=== PATIENT | male | born 1985 | race Caucasian/White ===

== ENCOUNTER 2021-02-03 17:37 | Emergency (ER) | payer OTHER ==
[2021-02-03] MEDS ORDERED: PERMETHRIN CREA60 GM TOP (23:04)
[2021-02-03] MEDS ORDERED: BACTRIM DS TAB1 EACH PO (23:04)
== END 2021-02-03 23:26 | disposition home or self-care (01) ==
LOC: FER 17:37
DX: S80.262A Insect bite (nonvenomous), left knee, initial encounter (principal); B86 Scabies; W57.XXXA Bitten or stung by nonvenomous insect and other nonvenomous arthropods, initial encounter
CPT/HCPCS: 99282

== ENCOUNTER 2021-02-06 12:05 | Emergency (ER) | payer OTHER ==
[~2021-02-06 12:05] MED LIST: BACTRIM DS TAB1 EACH PO; PERMETHRIN CREA60 GM TOP
[2021-02-06] MEDS ORDERED: BACTROBAN NASAL1 GM (13:06)
[2021-02-06] MEDS ORDERED: CLEOCIN300 MG PO (13:06)
== END 2021-02-06 13:50 | disposition home or self-care (01) ==
LOC: FER 12:05
DX: L03.115 Cellulitis of right lower limb (principal); Z88.1 Allergy status to other antibiotic agents
CPT/HCPCS: 99283